=== PATIENT | male | born 1980 | race Caucasian/White ===

== ENCOUNTER 2017-08-06 14:57 | Emergency (ER) | payer BC ==
--- NOTE | 2017-08-06 15:01 | ER Report ---
History and Physical Time Seen By MD: 15:00 HPI/ROS CHIEF COMPLAINT: depressed and suicidal HISTORY OF PRESENT ILLNESS: Pt brought in by police for depression and suicidal thoughts. Police were called by pts mom after mom received a text saying "good- bye". When I asked pt if he had thoughts of suicide he said yes but denies any plan. PT states that he has "a lot of stress" . Does not like people at work. "i hate society". Pt states he has felt this way for a long time. Does not have a therapist "they are useless, you just end up talking to yourself". Pt does have a gun REVIEW OF SYSTEMS: Constitutional: No fever, no chills. Eyes: No discharge. ENT: No sore throat. Cardiovascular: No chest pain, no palpitations. Respiratory: No cough, no shortness of breath. Gastrointestinal: No abdominal pain, no vomiting. Genitourinary: No hematuria. Musculoskeletal: No back pain. Skin: No rashes. Neurological: No headache. Psych: depressed and sucidial Allergies: Coded Allergies: naproxen (Verified Allergy, Intermediate, MOUTH AND BODY ULCERS, 09/26/09) Home Meds Reported Medications [None] No Conflict Check, 0 Refills 09/26/09 Past Medical/Surgical History pmhx: anxiety Pshx: non contrib Reviewed Nurses Notes: Yes Smoking Status: Former Smoker (currently chews tobacco) Hx Alcohol Use: Yes Constitutional Vital Sign - Last 24 Hours 08/06/17 15:03 Temp 100.0 Pulse 91 Resp 19 B/P (MAP) 142/99 Pulse Ox 91 O2 Delivery Room Air Physical Exam General Appearance: The patient is alert, has no immediate need for airway protection and no signs of toxicity. Eyes: Pupils equal and round no pallor or injection, EOMI ENT: no pharyngeal erythema or exudates, Mucous membranes are moist Respiratory: There are no retractions, lungs are clear to auscultation. Cardiovascular: Regular rate and rhythm. pulses are equal and symmetrical Gastrointestinal: Abdomen is soft and non tender, no masses, bowel sounds normal, no guarding, no rigidity or rebound Neurological: Cranial nerves II-XII grossly intact, no sensory or motor loss Skin: Warm and dry, no rashes. Musculoskeletal: Neck is supple non tender, no vertebral tenderness Extremities are nontender, nonswollen and have full range of motion. Psych: flat affect DIFFERENTIAL DIAGNOSIS: After history and physical exam differential diagnosis was considered for depression with suicidal thoughts. Medical Decision Making Data Points Result Diagram: 08/06/17 1524 08/06/17 1524 Laboratory Hematology Test 08/06/17 15:24 Red Blood Count 6.14 M/uL (4.00-5.60) Mean Corpuscular Volume 83.5 fL (80.0-96.0) Mean Corpuscular Hemoglobin 28.7 pg (26.0-33.0) Mean Corpuscular Hemoglobin Concent 34.3 g/dL (32.0-36.0) Red Cell Distribution Width 12.3 % (11.5-14.5) Mean Platelet Volume 6.7 fL (7.2-11.1) Neutrophils (%) (Auto) 63.3 % (39.4-72.5) Lymphocytes (%) (Auto) 24.7 % (17.6-49.6) Monocytes (%) (Auto) 7.4 % (4.1-12.4) Eosinophils (%) (Auto) 3.9 % (0.4-6.7) Basophils (%) (Auto) 0.7 % (0.3-1.4) Nucleated RBC Relative Count (auto) 0.1 /100WBC Neutrophils # (Auto) 5.7 K/uL (2.0-7.4) Lymphocytes # (Auto) 2.2 K/uL (1.3-3.6) Monocytes # (Auto) 0.7 K/uL (0.3-1.0) Eosinophils # (Auto) 0.3 K/uL (0.0-0.5) Basophils # (Auto) 0.1 K/uL (0.0-0.1) Nucleated RBC Absolute Count (auto) 0.01 K/uL Sodium Level 141 mmol/L (137-145) Potassium Level 4.6 mmol/L (3.5-5.0) Chloride Level 105 mmol/L (98-107) Carbon Dioxide Level 18 mmol/L (22-30) Blood Urea Nitrogen 13 mg/dl (9-21) Creatinine 1.10 mg/dl (0.66-1.25) Glomerular Filtration Rate Calc > 60.0 Random Glucose 105 mg/dl (75-110) Calcium Level 9.1 mg/dl (8.4-10.2) Magnesium Level 1.9 mg/dl (1.7-2.2) Total Bilirubin 0.3 mg/dl (0.2-1.3) Aspartate Amino Transf (AST/SGOT) 27 U/L (0-35) Alanine Aminotransferase (ALT/SGPT) 52 U/L (0-56) Alkaline Phosphatase 63 U/L (0-126) Total Protein 7.9 gm/dl (6.3-8.2) Albumin 4.7 g/dl (3.5-5.0) Salicylates Level < 10 mg/L Salicylate Last Dose Date unknown Acetaminophen Level < 10 ug/ml Serum Alcohol 132 mg/dl Chemistry Test 08/06/17 15:24 White Blood Count 9.0 k/uL (4.5-11.0) Red Blood Count 6.14 M/uL (4.00-5.60) Hemoglobin 17.6 g/dL (14.0-18.0) Hematocrit 51.3 % (42.0-52.0) Mean Corpuscular Volume 83.5 fL (80.0-96.0) Mean Corpuscular Hemoglobin 28.7 pg (26.0-33.0) Mean Corpuscular Hemoglobin Concent 34.3 g/dL (32.0-36.0) Red Cell Distribution Width 12.3 % (11.5-14.5) Platelet Count 278 K/uL (150-450) Mean Platelet Volume 6.7 fL (7.2-11.1) Neutrophils (%) (Auto) 63.3 % (39.4-72.5) Lymphocytes (%) (Auto) 24.7 % (17.6-49.6) Monocytes (%) (Auto) 7.4 % (4.1-12.4) Eosinophils (%) (Auto) 3.9 % (0.4-6.7) Basophils (%) (Auto) 0.7 % (0.3-1.4) Nucleated RBC Relative Count (auto) 0.1 /100WBC Neutrophils # (Auto) 5.7 K/uL (2.0-7.4) Lymphocytes # (Auto) 2.2 K/uL (1.3-3.6) Monocytes # (Auto) 0.7 K/uL (0.3-1.0) Eosinophils # (Auto) 0.3 K/uL (0.0-0.5) Basophils # (Auto) 0.1 K/uL (0.0-0.1) Nucleated RBC Absolute Count (auto) 0.01 K/uL Glomerular Filtration Rate Calc > 60.0 Calcium Level 9.1 mg/dl (8.4-10.2) Magnesium Level 1.9 mg/dl (1.7-2.2) Total Bilirubin 0.3 mg/dl (0.2-1.3) Aspartate Amino Transf (AST/SGOT) 27 U/L (0-35) Alanine Aminotransferase (ALT/SGPT) 52 U/L (0-56) Alkaline Phosphatase 63 U/L (0-126) Total Protein 7.9 gm/dl (6.3-8.2) Albumin 4.7 g/dl (3.5-5.0) Salicylates Level < 10 mg/L Salicylate Last Dose Date unknown Acetaminophen Level < 10 ug/ml Serum Alcohol 132 mg/dl Toxicology Test 08/06/17 15:24 Salicylates Level < 10 mg/L Salicylate Last Dose Date unknown Acetaminophen Level < 10 ug/ml Serum Alcohol 132 mg/dl ED Course/Re-evaluation ED Course 08/06/2017 3:21:39 pm crisis called down to see patient. 08/06/2017 4:09:31 pm Pt signed in voluntarily. will speak with [facility] psych 08/06/2017 4:13:49 pm Tracie Garza accepts pt to psych floor. Would like the UDS to be sent prior to his going to floor. As of yet pt has not urinated. Decision to Disposition Date: Aug 06, 2017 Decision to Disposition Time: 16:09 Depart Departure Latest Vital Signs Vital Signs Date Time Temp Pulse Resp B/P (MAP) Pulse Ox O2 Delivery O2 Flow Rate FiO2 08/06/17 15:03 100.0 91 19 142/99 91 Room Air Impression: Primary Impression: Suicidal ideation Additional Impression: Depressed affect Disposition: XFER TO [facility] Referrals: WILFREDO AKINS (PCP) Problem Qualifiers MARIA ESTHER TORO DO Aug 06, 2017 15:01
[2017-08-06] MEDS ORDERED: LORazepam 1 MG TAB PO ONE (15:15)
[2017-08-06 15:36] LABS: PLATELET COUNT, AUTOMATED 278 K/uL (150-450)
[2017-08-06 16:38] VITALS: BP 121/89
[2017-08-07] MEDS ORDERED: HYDR25CA83 PO (09:45)
== END 2017-08-06 17:03 ==
LOC: ER 15:15
DX: R45.851 Suicidal ideations (principal); F32.9 Major depressive disorder, single episode, unspecified; F17.220 Nicotine dependence, chewing tobacco, uncomplicated
CPT/HCPCS: 36415; 80305; 80320; 80329; 81001; 82040; 82247; 82310; 82374; 82435; 82565; 82947; 83735; 84075; 84132; 84155; 84295; 84443; 84450; 84460; 84520; 85025; 99285

== ENCOUNTER 2017-08-06 16:42 | Inpatient (IN) | payer BC ==
[~2017-08-06] VITALS: Ht 162.6 cm; Wt 68.0 kg
[2017-08-06 17:05] VITALS: BP 124/91
[2017-08-06] MEDS ORDERED: NICOTINE CARTRIDGE 1 EA PO PRN (18:35)
[2017-08-06] MEDS ORDERED: MAG HYD/AL HYD/SIMETH 30ML UDC PO PRN (19:15)
[2017-08-06] MEDS ORDERED: ACETAMINOPHEN 325 MG TAB PO PRN (19:15)
[2017-08-06] MEDS: hydrOXYzine PAMOATE 25 MG CAP PO PRN (20:39)
[2017-08-07] MEDS ORDERED: ACETAMINOPHEN 325 MG TAB PO PRN (02:05)
[2017-08-07 05:52] VITALS: BP 116/68
[2017-08-07] MEDS: MULTIVITAMINS TAB PO SCH (08:26)
[2017-08-07] MEDS: NICOTINE INH SYSTEM 10 MG/INH INH PRN ×3 (08:57→14:54)
[2017-08-07] MEDS ORDERED: HYDR25CA83 PO (09:45)
[2017-08-07 13:15] VITALS: BP 122/78
[2017-08-07] MEDS ORDERED: SERTRALINE HCL 50 MG TAB PO ONE (13:30)
[2017-08-07] MEDS: NICOTINE 21 MG/24 HR PATCH TD SCH (17:31)
[2017-08-07 19:30] VITALS: BP 108/88
[2017-08-07] MEDS: hydrOXYzine PAMOATE 25 MG CAP PO PRN (22:31)
[2017-08-08 06:32] VITALS: BP 114/68
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
[2017-08-08] MEDS: MULTIVITAMINS TAB PO SCH (08:15)
[2017-08-08] MEDS: SERTRALINE HCL 50 MG TAB PO SCH (08:15)
[2017-08-08] MEDS: NICOTINE 21 MG/24 HR PATCH TD SCH (08:16)
[2017-08-08] MEDS: PATCH REMOVAL 1 EA TP SCH (08:21)
[2017-08-08 08:47] VITALS: BP 133/95
[2017-08-08] MEDS ORDERED: buPROPion SR 150 MG TABCR PO ONE (11:50)
--- NOTE | 2017-08-08 12:20 | BHS Progress Note ---
[facility] - Subjective Progress Notes Subjective Patient engaging in open communication on the unit today, states he wants to stop nicotine as well, we will add in wellbutrin today for smoking cessation. and anti-depressant effects. Will obtain thyroid panel, and vitamin d level. Will continue treatment today, with therapy focus on negative thinking. No other concerns. Suicidal thoughts resolving. Suicidal Ideation: Resolving Homicidal Ideation: None [facility] - Objective Physical Exam Vital Signs Vital Signs Date Time Temp Pulse Resp B/P (MAP) Pulse Ox O2 Delivery O2 Flow Rate FiO2 08/08/17 08:47 98.5 68 133/95 (108) 95 Room Air 08/08/17 06:32 15 Muscle Strength and Tone: WNL Gait and Station: Steady [facility] Medications Reviewed: Side Effects, Benefits of Medication, Risks Allergies Reviewed: Yes Mental Status Exam General Appearance: Casual, Well Groomed, Good Eye Contact, Cooperative, Polite , Good Interaction, Psychomotor Retardation, No Bizarre Mannerisms, No Tics Speech: Clear, Spontaneous, Normal Rate, Normal Rhythm, Normal Volume, Normal Tone Mood: Dysthmic/Depressed Affect: Sad, Neutral, Withdrawn, No Tearful, No Anxious, No Agitated Thought Process: Organized, Logical, Goal Directed, No Loose Associations, No Flight of Ideas Thought Content: Suicidal Ideation (resolving), No Homicidal Ideation, No Delusions, No Auditory Halllucinations, No Visual Hallucinations, No Thought Broadcasting, No Ideas of Reference, No Obsessions, No Compulsions Sensorium: Clear Cognition: Alert & Oriented-Person, Alert & Oriented-Place, Alert & Oriented- Time, [id number] Memory: Immediate, Recent, Remote Intelligence: Average Insight Judgment: Poor (much negative thinking.) [facility] Assessment and Plan [id number] Encounter Date: Aug 08, 2017 [id number] Encounter Time: 11:30 [facility] Plan: Necessary Precautions, Individual/Group Therapy, Admin/Titrate Meds, Educate Patient Tobacco Medications: Bupropion (Wellbutrin), Started Problems: (1) Persistent depressive disorder Status: Chronic (2) Adjustment disorder with disturbance of emotion Status: Acute (3) Cannabis use disorder, severe, in controlled environment Status: Chronic Assessment & Plan: recent remission (4) Alcohol use disorder, moderate, in early remission Status: Chronic Assessment & Plan: currently in remission. Condition 1. start wellbutrin SR. 2. further labwork 3. continue treatment ALICIA HASSAN MD Aug 08, 2017 12:20
[2017-08-08] MEDS: hydrOXYzine PAMOATE 25 MG CAP PO PRN (21:30)
[2017-08-08 21:33] VITALS: BP 131/87
[2017-08-09 06:29] VITALS: BP 129/76
[2017-08-09] MEDS: NICOTINE 21 MG/24 HR PATCH TD SCH (08:12)
[2017-08-09] MEDS: PATCH REMOVAL 1 EA TP SCH (08:14)
[2017-08-09] MEDS: SERTRALINE HCL 50 MG TAB PO SCH (08:14)
[2017-08-09] MEDS: MULTIVITAMINS TAB PO SCH (08:14)
[2017-08-09] MEDS: buPROPion SR 150 MG TABCR PO SCH ×2 (08:14→12:28)
--- NOTE | 2017-08-09 09:26 | BHS Progress Note ---
S - Subjective Progress Notes Subjective Patient doing well today, mood improving, appetite good, no evidence of sleep apnea. Patient participating in care, will monitor increased Wellbutrin today, will continue treatment. Treatment team meeting will be set for tomorrow AM. No para-suicdal behaviors on the unit. Suicidal Ideation: None Homicidal Ideation: None S - Objective Physical Exam Vital Signs Vital Signs Date Time Temp Pulse Resp B/P (MAP) Pulse Ox O2 Delivery O2 Flow Rate FiO2 08/09/17 06:29 99.1 80 15 129/76 (93) 94 Room Air Hematology Test 08/06/17 00:00 Vitamin D 25-Hydroxy 32 ng/ml (30-100) Free Thyroxine 1.02 ng/dl (0.78-2.19) Chemistry Test 08/06/17 00:00 Vitamin D 25-Hydroxy 32 ng/ml (30-100) Free Thyroxine 1.02 ng/dl (0.78-2.19) Muscle Strength and Tone: WNL Gait and Station: Steady [facility] Medications Reviewed: Side Effects, Benefits of Medication, Risks Allergies Reviewed: Yes Mental Status Exam General Appearance: Casual, Well Groomed, Good Eye Contact, Cooperative, Polite , Good Interaction, No Unkept, No Tearful, No Psychomotor Agitation, No Psychomotor Retardation, No Bizarre Mannerisms, No Tics Speech: Clear, Spontaneous, Normal Rate, Normal Rhythm, Normal Volume, Normal Tone Mood: Dysthmic/Depressed (mood improving) Affect: Full and Appropriate, Calm, No Sad, No Neutral, No Withdrawn, No Tearful, No Anxious, No Agitated Thought Process: Organized, Logical, Goal Directed, No Loose Associations, No Flight of Ideas Thought Content: Suicidal Ideation (denies today), No Homicidal Ideation, No Delusions, No Auditory Halllucinations, No Visual Hallucinations, No Thought Broadcasting, No Ideas of Reference, No Obsessions, No Compulsions Sensorium: Clear Cognition: Alert & Oriented-Person, Alert & Oriented-Place, Alert & Oriented- Time, [id number]-[id number]-[id number] Memory: Immediate, Recent, Remote Intelligence: Average Insight Judgment: Poor (much negative thinking.) [facility] Assessment and Plan [id number] Encounter Date: Aug 09, 2017 [id number] Encounter Time: 08:45 [facility] Plan: Necessary Precautions, Individual/Group Therapy, Admin/Titrate Meds, Educate Patient Tobacco Medications: Bupropion (Wellbutrin), Started Problems: (1) Persistent depressive disorder Status: Chronic (2) Adjustment disorder with disturbance of emotion Status: Acute (3) Cannabis use disorder, severe, in controlled environment Status: Chronic Assessment & Plan: recent remission (4) Alcohol use disorder, moderate, in early remission Status: Chronic Assessment & Plan: currently in remission. Condition 1. increased does of wellbutrin today. 2. continue treatment. ALICIA HASSAN MD Aug 09, 2017 09:25
[2017-08-09 12:51] VITALS: BP 118/87
[2017-08-09] MEDS: hydrOXYzine PAMOATE 25 MG CAP PO PRN (21:27)
[2017-08-09 21:48] VITALS: BP 117/81
[2017-08-10 05:55] VITALS: BP 125/83
[2017-08-10] MEDS: SERTRALINE HCL 50 MG TAB PO SCH (07:59)
[2017-08-10] MEDS: buPROPion SR 150 MG TABCR PO SCH ×2 (07:59→12:05)
[2017-08-10] MEDS: MULTIVITAMINS TAB PO SCH (07:59)
[2017-08-10] MEDS: PATCH REMOVAL 1 EA TP SCH (08:00)
[2017-08-10] MEDS: NICOTINE 21 MG/24 HR PATCH TD SCH (08:00)
[2017-08-10] MEDS ORDERED: NICO-218 TD (09:41)
[2017-08-10] MEDS ORDERED: MULT-1379 PO (09:42)
[2017-08-10] MEDS ORDERED: BUPR-126 PO (09:43)
[2017-08-10 13:12] VITALS: BP 119/86
--- NOTE | 2017-08-11 18:02 | DISCHARGE SUMMARY ---
This patient was seen for this discharge summary on August 10, 2017 at approximately 0930 hours. FINAL DIAGNOSES PER DSM-V Adjustment disorder with depressed mood. Nicotine dependence. Social stressors concerning employment. REASON FOR ADMISSION This is a very pleasant 36-year-old male who took a very active role in his treatment. Patient was admitted on a voluntary basis after work stressors mounted to where the patient had experienced vague thoughts of self-harm. Patient again was admitted without incident, very cooperative, polite throughout his stay. Patient was started on Wellbutrin for nicotine dependence. Patient indicated a desire to stop nicotine use. Patient also started on Wellbutrin for mood elevating effects. Patient was briefly given Zoloft on the unit as well, however, Zoloft was discontinued prior to discharge , and patient would remain on Wellbutrin alone with hydroxyzine to help with any anxiety or insomnia. Patient quickly improved on the unit, denying any further suicidal thoughts. Patient would look for further employment and work toward exhibiting a job where he has been for several years. Please see H and P for further details. PHYSICAL EXAMINATION GENERAL: Please see emergency room note. Notable for a cooperative 36-year- old male in no acute medical distress. VITAL SIGNS: At the time of admission, temperature 100, pulse 91, respiratory rate 19, blood pressure 142/99 and pulse oximetry 91 on room air. Vital signs at the time of discharge from [facility], temperature 97.6, pulse 72 , respiratory rate 15, blood pressure 119/86 and pulse oximetry 94 on room air. LABORATORY DATA CBC upon arrival notable for RBCs slightly elevated at 6.14, otherwise unremarkable. CMP unremarkable. TSH 1.49, in normal range. Urinalysis was unremarkable and toxicology screen was negative for substances of abuse with a serum alcohol level of 132. Further laboratory work on [facility] indicated a vitamin D 25-hydroxy level within normal limits at 32, free T4 1.02 and free T3 2.8. MENTAL STATUS EXAMINATION AT THE TIME OF DISCHARGE GENERAL APPEARANCE, BEHAVIOR AND ATTITUDE: This is a very polite, cooperative 36-year-old male, interacting well with this provider and other treatment team staff and other residents on the floor. Patient nontearful, making good eye contact. No psychomotor agitation or retardation. Patient actively exploring employment opportunities in the future and looking forward to altering current job course. SPEECH: Within normal limits, regular rate, rhythm volume and tone. MOOD: Described as improved. AFFECT: Full and bright. Mood congruent overall. THOUGHT PROCESSES: Logical, goal directed. No loose associations or flight of ideas. THOUGHT CONTENT: Free of auditory or visual hallucinations, ideas of reference , thought broadcastings, delusions, obsessions, compulsions. Patient adamantly denying any suicidal or homicidal ideation. SENSORIUM: Clear. COGNITION: Alert and oriented to person, place, time and situation. MEMORY: Immediate, recent and remote estimated intact. INTELLIGENCE: Average based on interview. INSIGHT AND JUDGMENT: Considered grossly intact and appropriate for ongoing outpatient management in the absence of alcohol use. RESULTS OF TESTING IMAGING: None. LABORATORY DATA: See above. CONSULTATIONS: None. TREATMENT Patient received medications, participated in individual and group therapy. HOSPITAL COURSE Patient admitted without incident, took an active role in his treatment from the start and continued throughout his stay. Patient was started on Wellbutrin SR 150 mg. This was increased to q.a.m. and q.noon dosing. Patient initially had been placed on Zoloft 50 mg. This was discontinued. Patient was also to take hydroxyzine 25-50 mg p.o. q.6 hours for anxiety and insomnia. Patient continued to improve. Patient was able to make long-term goals for himself as an outpatient. CONDITION OF PATIENT ON DISCHARGE Stable. Considered minimal risk to himself or others in the absence of alcohol use, and appropriate for outpatient care. DISPOSITION Patient discharged to home. Patient would follow up with outpatient therapy and medication management. Crisis line was given should symptoms return. Patient was to refrain from all alcohol and all substance use. DISCHARGE MEDICATIONS 1. Wellbutrin SR 150 mg p.o. q.a.m. and q.noon. 2. Hydroxyzine 25-50 mg p.o. q.6 hours p.r.n. for anxiety and insomnia. Risks, benefits and alternatives of the above discharge plan were discussed. Informed consent was given to proceed with above discharge plan by this competent patient. [place]IS[place]
== END 2017-08-10 16:05 | disposition home or self-care (01) | DRG 881 ==
LOC: BHS 16:42
PROVIDERS: ADMIT Nurse Practitioner Psychiatric/Mental Health; ATTEND Nurse Practitioner Psychiatric/Mental Health
DX: F43.21 Adjustment disorder with depressed mood (principal); R45.851 Suicidal ideations; F34.1 Dysthymic disorder; F12.20 Cannabis dependence, uncomplicated; F10.20 Alcohol dependence, uncomplicated; G89.29 Other chronic pain; F17.220 Nicotine dependence, chewing tobacco, uncomplicated; Y90.6 Blood alcohol level of 120-199 mg/100 ml; Z62.811 Personal history of psychological abuse in childhood; Z60.8 Other problems related to social environment; Z91.5 Personal history of self-harm
CPT/HCPCS: 82306; 84439; 84481; 90853; Q0177